=== PATIENT | female | born 1975 | race Caucasian/White ===

== ENCOUNTER 2016-07-13 12:57 | Emergency (ER) | payer OTHER ==
[2016-07-13] MEDS ORDERED: DEXAMETHASONE 10 MG/ML VIAL PO STA (13:48)
[2016-07-13] MEDS ORDERED: CHERRY SYRUP 10 ML UDC PO ONE (13:50)
[2016-07-13] MEDS ORDERED: DEXAMETHASONE 10 MG/ML VIAL ONE (13:51)
== END 2016-07-13 13:58 | disposition home or self-care (01) ==
DX: H66.002 Acute suppurative otitis media without spontaneous rupture of ear drum, left ear (principal)
CPT/HCPCS: 99283; A9270